=== PATIENT | male | born 1950 | race Caucasian/White ===

== ENCOUNTER 2018-11-27 08:00 | Outpatient (CLI) | payer BC ==
[2018-11-27 18:39] LABS: HB2 TOTAL 14.3 g/dL; HEMOGLOBIN A1C 0.85 g/dL; HEMOGLOBIN A1C % 7.6 % (4.6-6.2)
== END 2018-11-27 23:59 | disposition home or self-care (01) ==
LOC: LAB.N 08:00
PROVIDERS: ATTEND Family Medicine
DX: E11.9 Type 2 diabetes mellitus without complications (principal)
CPT/HCPCS: 36415; 83036

== ENCOUNTER 2019-02-26 07:15 | Outpatient (CLI) | payer BC ==
[2019-02-26 12:54] LABS: HB2 TOTAL 13.9 g/dL; HEMOGLOBIN A1C 0.8 g/dL; HEMOGLOBIN A1C % 7.4 % (4.6-6.2)
== END 2019-02-26 23:59 | disposition home or self-care (01) ==
LOC: LAB.N 07:15
PROVIDERS: ATTEND Family Medicine
DX: E11.9 Type 2 diabetes mellitus without complications (principal)
CPT/HCPCS: 36415; 83036

== ENCOUNTER 2021-06-02 09:40 | Outpatient (CLI) | payer OTHER ==
--- NOTE | 2021-06-02 12:24 | XRAY Report ---
PROCEDURE: Shoulder 2 View RT INDICATIONS: PAIN IN RIGHT SHOULDER TECHNIQUE: 2 views of the shoulder were acquired. COMPARISON: None. FINDINGS: Bones: No fractures or dislocations. No suspicious bony lesions. Visualized ribs appear intact. Mo derate left acromioclavicular joint osteoarthritis. Mild left glenohumeral joint osteophytes. Soft tissues: No suspicious soft tissue calcifications. IMPRESSION: Moderate acromioclavicular joint and mild glenohumeral joint osteophytosis. Reviewed by: Patricia Carter MD, PhD on 06/02/2021 12:23 PM PDT Approved by: Patricia Carter MD, PhD on 06/02/2021 12:23 PM PDT Station ID: [id number]
== END 2021-06-02 09:41 | disposition home or self-care (01) ==
LOC: DI.N 09:40
PROVIDERS: ATTEND Physician Assistant
DX: M19.011 Primary osteoarthritis, right shoulder (principal); I10 Essential (primary) hypertension; E11.9 Type 2 diabetes mellitus without complications; Z13.9 Encounter for screening, unspecified; Z12.11 Encounter for screening for malignant neoplasm of colon
CPT/HCPCS: 36415; 80053; 80061; 82043; 82274; 82570; 83036; 83721; 85025

== ENCOUNTER 2021-06-02 09:44 | Outpatient (CLI) | payer OTHER ==
[2021-06-02 12:26] LABS: BASOPHILS % (AUTO) 0.5 %; EOSINOPHILS # (AUTO) 0.3 10^3/uL (0.0-0.7); EOSINOPHILS % (AUTO) 4.4 %; HCT - HEMATOCRIT 44.1 % (42.0-52.0); HGB - HEMOGLOBIN 15.1 g/dL (14.0-18.0); LYMPHOCYTES # (AUTO) 1.4 10^3/uL (1.5-3.5); LYMPHOCYTES % (AUTO) 22.2 %; MEAN CORPUSCULAR HEMOGLOBIN 31.2 pg (27.0-31.0); MEAN CORPUSCULAR HGB CONC 34.2 g/dL (32.0-36.0); MEAN CORPUSCULAR VOLUME 91.1 fL (80.0-94.0); MEAN PLATELET VOLUME 11.1 fL (7.4-11.4); MONOCYTES # (AUTO) 0.6 10^3/uL (0.0-1.0); MONOCYTES % (AUTO) 9.8 %; NEUTROPHILS # (AUTO) 3.9 10^3/uL (1.5-6.6); NEUTROPHILS % (AUTO) 62.9 %; PLT - PLATELET COUNT 268 10^3/uL (130-450); RED BLOOD COUNT 4.84 10^6/uL (4.70-6.10); RED CELL DISTRIBUTION WIDTH 12.5 % (12.0-15.0); WHITE BLOOD COUNT 6.1 x10^3/uL (4.8-10.8)
[2021-06-02 12:33] LABS: FECAL OCCULT BLOOD (FIT) NEGATIVE (NEGATIVE)
[2021-06-02 13:14] LABS: CREATININE,URINE 68.9 mg/dL; MICROALBUM/CREATININE RATIO,UR 11.6 ug/mg (<30.0); MICROALBUMIN,URINE 0.8 mg/dL (0-300.0)
[2021-06-02 13:21] LABS: ESTIMATED AVERAGE GLUCOSE 272 mg/dL (70-100); HEMOGLOBIN A1c% 11.1 % (4.27-6.07)
[2021-06-02 13:25] LABS: ALBUMIN/GLOBULIN RATIO 1.4 (1.0-2.2); ALKALINE PHOSPHATASE 57 IU/L (42-121); ALT ALANINE AMINOTRANSFERASE 29 IU/L (10-60); AST ASPARTATE AMINOTRANSFERASE 24 IU/L (10-42); BILIRUBIN,TOTAL 0.5 mg/dL (0.2-1.0); BUN - BLOOD UREA NITROGEN 29 mg/dL (6-20); CALCIUM 9.6 mg/dL (8.5-10.3); CARBON DIOXIDE - CO2 25 mmol/L (21-32); CHLORIDE 96 mmol/L (101-111); CHOL/HDL RATIO 3.6 (<5.0); CHOLESTEROL 167 mg/dL; CREATININE 1.1 mg/dL (0.6-1.2); GFR - MDRD 67 (>89); GLUCOSE 368 mg/dL (70-100); HDL CHOLESTEROL 46 mg/dL; LDL CHOLESTEROL,CALCULATED 95 mg/dL; LDL/HDL RATIO 2.1 (<3.6); POTASSIUM 4.1 mmol/L (3.5-5.0); SODIUM 133 mmol/L (135-145); TOTAL PROTEIN 6.8 g/dL (6.7-8.2); TRIGLYCERIDES 130 mg/dL; VLDL CHOLESTEROL 26 mg/dL
== END 2021-06-02 09:45 | disposition home or self-care (01) ==
LOC: LAB.N 09:44
PROVIDERS: ATTEND Physician Assistant
DX: I10 Essential (primary) hypertension (principal); E11.9 Type 2 diabetes mellitus without complications; Z13.9 Encounter for screening, unspecified; Z12.11 Encounter for screening for malignant neoplasm of colon
CPT/HCPCS: 36415; 80053; 80061; 82043; 82274; 82570; 83036; 83721; 85025

== ENCOUNTER 2021-09-28 08:22 | Outpatient (CLI) | payer OTHER ==
--- NOTE | 2021-09-28 13:41 | CT Report ---
PROCEDURE: Abdomen/Pelvis WO INDICATIONS: ABD HERNNIA INCISIONAL TECHNIQUE: Noncontrast 5 mm thick sections acquired from the diaphragms to the symphysis. 5 mm coronal and sagi ttal reformats were then performed. For radiation dose reduction, the following was used: automated exposure control, adjustment of mA and/or kV according to patient size. COMPARISON: None. FINDINGS: Image quality: Excellent. ABDOMEN: Lung bases: Lung bases are clear. Heart size is normal. Solid organs: Liver and spleen are normal in size. Gallbladder is normal. Pancreas is atrophic. N o adrenal nodules. Kidneys are normal in size, without hydronephrosis or nephrolithiasis. Peritoneum and bowel: Unenhanced bowel loops demonstrate normal wall thickness and caliber. No free fluid or air. Nodes and vessels: No retroperitoneal or mesenteric adenopathy by size criteria. Aorta and inferior vena cava are normal in caliber. Miscellaneous: There is a ventral hernia containing bowel with no evidence of circulation or incarcer ation. PELVIS: Genitourinary: Bladder wall thickness is normal. Miscellaneous: Bilateral inguinal hernias containing fluid. Bones: No suspicious bony lesions. No vertebral body compression fractures. IMPRESSION: 1. Ventral hernia containing small bowel without incarceration or strangulation. 2. No other significant or acute abnormality. Reviewed by: Saran Arreola on 09/28/2021 1:40 PM PDT Approved by: Saran Arreola on 09/28/2021 1:40 PM PDT Station ID: [id number]
[2021-09-28] MEDS ORDERED: DIATR MEGLU/DIATRIZOATE SODIUM 120 ML BOTTLE PO ONE (13:58)
== END 2021-09-28 08:23 | disposition home or self-care (01) ==
LOC: DI 08:22
PROVIDERS: ATTEND Physician Assistant
DX: K43.9 Ventral hernia without obstruction or gangrene (principal)
CPT/HCPCS: 74176; Q9963

== ENCOUNTER 2022-07-02 20:45 | Emergency (ER) | payer OTHER ==
[2022-07-02 21:19] LABS: BASOPHILS % (AUTO) 0.2 %; EOSINOPHILS # (AUTO) 0.1 10^3/uL (0.0-0.7); EOSINOPHILS % (AUTO) 0.5 %; HCT - HEMATOCRIT 44.6 % (42.0-52.0); HGB - HEMOGLOBIN 15.4 g/dL (14.0-18.0); LYMPHOCYTES # (AUTO) 1.2 10^3/uL (1.5-3.5); LYMPHOCYTES % (AUTO) 7.7 %; MEAN CORPUSCULAR HEMOGLOBIN 31.3 pg (27.0-31.0); MEAN CORPUSCULAR HGB CONC 34.5 g/dL (32.0-36.0); MEAN CORPUSCULAR VOLUME 90.7 fL (80.0-94.0); MEAN PLATELET VOLUME 9.8 fL (7.4-11.4); MONOCYTES # (AUTO) 1.1 10^3/uL (0.0-1.0); MONOCYTES % (AUTO) 7.3 %; NEUTROPHILS # (AUTO) 13.2 10^3/uL (1.5-6.6); NEUTROPHILS % (AUTO) 83.9 %; PLT - PLATELET COUNT 284 10^3/uL (130-450); RED BLOOD COUNT 4.92 10^6/uL (4.70-6.10); WHITE BLOOD COUNT 15.7 x10^3/uL (4.8-10.8)
[2022-07-02 21:21] LABS: ALBUMIN 4.6 g/dL (3.2-5.5); ALBUMIN/GLOBULIN RATIO 1.5 (1.0-2.2); BILIRUBIN,TOTAL 0.7 mg/dL (0.2-1.0); CALCIUM 9.8 mg/dL (8.5-10.3); CREATININE 1.3 mg/dL (0.6-1.2); TOTAL PROTEIN 7.6 g/dL (6.7-8.2)
[2022-07-02] MEDS ORDERED: SODIUM CHLORIDE 0.9% 1,000 ML IV STA (21:23)
[2022-07-02] MEDS ORDERED: ONDANSETRON 4 MG/2 ML VIAL IVP STA (21:23)
[2022-07-02] MEDS ORDERED: HYDROmorphone 1 MG/ML CARPUJECT IVP STA ×2 (21:23→22:00)
--- NOTE | 2022-07-02 21:30 | ED Physician Documentation ---
PD HPI ABD PAIN - Stated complaint Stated Complaint: ABD PX/V - Chief complaint Chief Complaint: Abd Pain - History obtained from History obtained from: Patient - Additional information Additional information: The patient comes to the emergency department with chief complaint of pain spreading across his upper abdomen. He states that he began to notice a burning there this morning and that it felt similar to the pain he used to get with his incisional hernia, which was repaired last December. The patient states that when he used to get that pain, he would just vomit and then it would feel better . However, the patient gagged himself to force himself to vomit, but this did not get rid of the pain. The patient states that he had 3 large bowel movements today and these seem normal. He has not had any indication of recurrence of his hernia. The patient states that he finally vomited on his own this evening on the way to the ED. The patient states the pain is just a sharp pain shooting al l the way across his abdomen. It is not worse on one side or the other. He states that his surgical history consists mainly of a partial colectomy after ruptured diverticulitis years ago, with colostomy placement and subsequent colostomy takedown 4 months later. He states his appendix was removed at the time of the colectomy. The patient then had his incisional hernia repaired this past fall. Otherwise, he denies any other surgeries. He has not had a fever or any other signs of illness accompanying his abdominal pain and vomiting. No other complaints at this time. PD PAST MEDICAL HISTORY - Present Medications Home Medications: Ambulatory Orders Medication Instructions Recorded Confirmed Amlodipine Besylate/Benazepril 5 - 20 mg PO DAILY 07/02/22 07/02/22 [Amlodipine-Benazepril 5-20 mg] HYDROcod/ACETAM 5/325 [Warwick 5/325] 1 - 2 tablet PO Q6H PRN #10 tablet 07/02/22 Metformin HCl 1,000 mg PO BID 07/02/22 07/02/22 Ondansetron Odt [Zofran] 4 mg TL Q6H PRN #10 tablet 07/02/22 glipiZIDE ER [Glucotrol Xl] 2.5 mg PO DAILY 07/02/22 07/02/22 hydroCHLOROthiazide [Hydrodiuril] 25 mg PO DAILY 07/02/22 07/02/22 - Allergies Allergies/Adverse Reactions: Allergies Allergy/AdvReac Type Severity Reaction Status Date / Time ofloxacin [From Floxin] AdvReac Rash Verified 07/02/22 20:52 PD ED PE NORMAL - Vitals Vital signs reviewed: Yes - General General: Alert and oriented X 3, No acute distress (Patient appears moderately uncomfortable but is not in distress), Well developed/nourished - HEENT HEENT: Atraumatic, PERRL, EOMI, Moist mucous membranes - Neck Neck: Supple, no meningeal sign - Cardiac Cardiac: RRR, No murmur, Strong equal pulses - Respiratory Respiratory: No respiratory distress, Clear bilaterally - Abdomen Abdomen: Soft, Other (Obese, diffusely tender across upper abdomen. No rebound or guarding.) - Derm Derm: Normal color, Warm and dry, No rash - Extremities Extremities: No deformity, Other (1+ pitting edema bilateral lower extremities) - Neuro Neuro: Alert and oriented X 3, Other (Grossly intact) - Psych Psych: Normal mood, Normal affect Results - Vitals Vitals: Oxygen O2 Source Room air - Labs Labs: Laboratory Tests 07/02/22 07/02/22 21:03 21:15 WBC 15.7 H RBC 4.92 Hgb 15.4 Hct 44.6 MCV 90.7 MCH 31.3 H MCHC 34.5 RDW 13.0 Plt Count 284 MPV 9.8 Neut # (Auto) 13.2 H Lymph # (Auto) 1.2 L Gem # (Auto) 1.1 H Eos # (Auto) 0.1 Baso # (Auto) 0.0 Absolute Nucleated RBC 0.00 Nucleated RBC % 0.0 Sodium 140 Potassium 4.0 Chloride 101 Carbon Dioxide 26 Anion Gap 13.0 BUN 27 H Creatinine 1.3 H Estimated GFR (MDRD) 55 L Glucose 239 H Calcium 9.8 Total Bilirubin 0.7 AST 28 ALT 33 Alkaline Phosphatase 65 Total Protein 7.6 Albumin 4.6 Globulin 3.0 Albumin/Globulin Ratio 1.5 Lipase 24 - Rads (name of study) CT abdomen and pelvis Relevant Findings:: Final report received, See rad report (Tiny postsurgical fluid collection versus recurrence of small fluid containing hernia ventral abdominal wall.) PD Medical Decision Making - ED course Complexity details: reviewed old records, reviewed results, re-evaluated patient, considered differential, d/w patient, d/w family ED course: The patient was treated symptomatically with IV fluids, Dilaudid and Zofran, and worked up with laboratory studies including CBC and ER abdominal panel. These were reviewed by me and the patient was found of elevated white blood cell count of 15.7 and normal kidney function. His blood sugar was found to be in the 200s. A CT scan of the abdomen and pelvis with IV contrast was ordered. The patient was found to have what appeared to be a tiny fluid collection or possible recurrence of a small hernia ventrally. He otherwise did not have any serious findings on his CT scan. He was feeling quite a bit better after symptomatic management and I felt he was stable for discharge home. We have discussed indications for return including worsening of pain, inability to hold anything down, and/or fever and jaundice. The patient and his have expressed understanding and would like to go home. I have prescribed analgesia and antiemetics. Departure - Departure Disposition: Home, Self Care Clinical Impression: Vomiting Qualifiers: Vomiting type: bilious vomiting Nausea presence: with nausea Qualified Code(s): R11.14 - Bilious vomiting Abdominal pain Qualifiers: Abdominal location: epigastric Qualified Code(s): R10.13 - Epigastric pain Abdominal hernia Qualifiers: Hernia type: incisional Obstruction and gangrene presence: without obstruction or gangrene Qualified Code(s): K43.2 - Incisional hernia without obstruction or gangrene Condition: Stable Instructions: ED Nausea Vomiting, ED Abdominal Pain Unkn Cause Male Prescriptions: HYDROcod/ACETAM 5/325 [Warwick 5/325] 1 - 2 tablet PO Q6H PRN #10 tablet PRN Reason: Pain Ondansetron Odt [Zofran] 4 mg TL Q6H PRN #10 tablet PRN Reason: Nausea / Vomiting Comments: Your labs showed a moderately elevated white blood cell count but your CT was read by the radiologist as unremarkable, other than showing a small recurrence of your hernia. Specifically, the radiologist did not note any bowel obstruction, and no concerning abnormalities were noted. It is not clear exactly what is caused her pain today, though you did appear to have some gas and contractions In your small bowel. This certainly could cause a lot of discomfort, as could a recurring hernia. For now, we will treat your symptoms with medication for pain and nausea. Other than in the area of the hernia, you should notice resolution of your pain over the next couple of days. If you do not, or if things seem to be getting steadily worse, then you should return for reevaluation. Please also schedule a follow-up with your primary doctor to discuss the possibility of endoscopy to evaluate for ulcer or gastritis, which cannot be seen well on CT. You have been given prepacks for pain and nausea medicine for tonight. Prescriptions for the same have been electronically transmitted to the [facility] pharmacy in [place]. Discharge Date/Time: 07/03/22 00:17
[2022-07-02] MEDS ORDERED: iohexoL-300 100 ML VIAL ONE (21:39)
[2022-07-02] MEDS ORDERED: DROPERIDOL 5 MG/2 ML VIAL IVP STA (22:00)
[2022-07-02] MEDS ORDERED: iohexoL-300 100 ML VIAL IVP ONE (22:31)
--- NOTE | 2022-07-02 22:50 | CT Report ---
PROCEDURE: ABDOMEN/PELVIS W INDICATIONS: abd pain, h/o incisional hernia CONTRAST: 100 ML OMNI 300 TECHNIQUE: After the administration of intravenous contrast, 5 mm thick sections acquired from the diaphragms to the symphysis. 5 mm thick coronal and sagittal reformats were acquired. For radiation dose reducti on, the following was used: automated exposure control, adjustment of mA and/or kV according to melissa ent size. COMPARISON: CT abdomen pelvis 09/28/2021 FINDINGS: Image quality: Excellent. Lung bases:There is mild dependent atelectasis. Heart:Heart size is borderline large. There is a small hiatal hernia. ABDOMEN: Liver: No mass lesion. Gallbladder: Within normal limits without calcified gallstones. Biliary ducts: No biliary ductal dilatation. Pancreas: Unremarkable. Spleen: Normal in size. Adrenal Glands: No adrenal nodules. Kidneys and Ureters: No hydronephrosis. There is a punctate nonspecific and stone within the left ki dney. There are a few parapelvic renal cysts. Stomach and Bowel: Stomach, small bowel loops, and colon are normal in caliber and wall thickness. T here are bowel sutures within the sigmoid colon. Peritoneum:There is a small amount of intraperitoneal free fluid. No free air. Ventral Wall: There is a small loculated fluid collection within the left ventral abdominal wall sug gestive of a small postsurgical collection such as a seroma. This measures approximately 5.0 x 0.9 x 2.8 cm. No definite herniated bowel loops. Abdominal Nodes: No retroperitoneal or mesenteric adenopathy by size criteria. Vessels: Aorta and inferior vena cava are normal in size. PELVIS: Pelvic Organs:There is mild to moderate heterogeneous enlargement of the prostate. Bladder: Unremarkable. Pelvic Nodes: No enlarged lymph nodes. Miscellaneous: No inguinal hernias. Bones: Visualized osseous structures demonstrate no suspicious lesions. IMPRESSION: 1. Small loculated collection in the region of the previously visualized hernia suggestive of a posts urgical collection such as seroma or less likely an abscess. The differential includes a small fluid- containing recurrent hernia. No definite herniated bowel loops or evidence of bowel obstruction. 2. Small amount of intraperitoneal free fluid is nonspecific and likely reactive. Reviewed by: Troy Vega MD on 07/02/2022 10:49 PM PDT Approved by: Troy Vega MD on 07/02/2022 10:49 PM PDT Station ID: [id number]
[2022-07-02 23:17] VITALS: BP 171/89
[2022-07-02] MEDS ORDERED: HYDROcod/ACET 5/325 Prepack 4 PO STA (23:56)
[2022-07-02] MEDS ORDERED: ONDANSETRON ODT 4 MG Prepack 2 TL PRN (23:56)
== END 2022-07-03 00:17 | disposition home or self-care (01) ==
LOC: ED 20:45
DX: R11.14 Bilious vomiting (principal); R10.13 Epigastric pain; K43.2 Incisional hernia without obstruction or gangrene
CPT/HCPCS: 36415; 74177; 80053; 83690; 85025; 96374; 96375; 96376; 99283; 99284; J1170; Q9967

== ENCOUNTER 2022-08-25 09:10 | Outpatient (CLI) | payer OTHER ==
[2022-08-25 12:13] LABS: ESTIMATED AVERAGE GLUCOSE 192 mg/dL (70-100); HEMOGLOBIN A1c% 8.3 % (4.27-6.07)
[2022-08-25 12:22] LABS: ALBUMIN 3.8 g/dL (3.2-5.5); ALBUMIN/GLOBULIN RATIO 1.3 (1.0-2.2); BILIRUBIN,TOTAL 0.5 mg/dL (0.2-1.0); CALCIUM 9.4 mg/dL (8.5-10.3); CREATININE 1.1 mg/dL (0.6-1.2); TOTAL PROTEIN 6.8 g/dL (6.7-8.2)
== END 2022-08-25 09:11 | disposition home or self-care (01) ==
LOC: LAB.N 09:10
PROVIDERS: ATTEND Physician Assistant
DX: E11.9 Type 2 diabetes mellitus without complications (principal); R79.89 Other specified abnormal findings of blood chemistry; Z12.5 Encounter for screening for malignant neoplasm of prostate
CPT/HCPCS: 36415; 80053; 83036; 84153

== ENCOUNTER 2023-01-19 10:32 | Outpatient (CLI) | payer OTHER ==
[2023-01-19 12:41] LABS: CALCIUM 9.6 mg/dL (8.5-10.3); CREATININE 1.2 mg/dL (0.6-1.3); POTASSIUM 4.1 mmol/L (3.5-4.5)
[2023-01-19 12:43] LABS: ESTIMATED AVERAGE GLUCOSE 183 mg/dL (70-100)
== END 2023-01-19 10:33 | disposition home or self-care (01) ==
LOC: LAB.N 10:32
PROVIDERS: ATTEND Physician Assistant
DX: E11.9 Type 2 diabetes mellitus without complications (principal)
CPT/HCPCS: 36415; 80048; 83036

== ENCOUNTER 2023-07-01 19:21 | Outpatient (CLI) | payer OTHER | END 2023-07-01 19:22 | disposition E | LOC: EMS 19:21 ==